=== PATIENT | female | born 1970 | race Caucasian/White ===

== ENCOUNTER → 2017-03-10 | Outpatient (CLI) | payer OTHER ==
[2017-03-17 02:40] LABS: ANAPLASMA PHAGOCYTOPHIL IGG <1:64 (<1:64); ANAPLASMA PHAGOCYTOPHIL IGM <1:20 (<1:20); ANTI-CENTROMERE AB <1.0 NEG AI (<1.0 NEG); ANTI-SS-A <1.0 NEG AI (<1.0 NEG); ANTI-SS-B <1.0 NEG AI (<1.0 NEG); DNA ds CRITHIDIA NEGATIVE (NEGATIVE); HLA-B27** TC 528X NEGATIVE (NEGATIVE); MICROSOMAL AB <1 IU/ML (<9); Sm Antibody <1.0 NEG AI (<1.0 NEG)
== END | disposition home or self-care (01) ==
LOC: C.LAB1850 14:42
PROVIDERS: ATTEND Internal Medicine Infectious Disease
DX: A69.20 Lyme disease, unspecified (principal)

== ENCOUNTER → 2017-03-19 | Outpatient (CLI) | payer OTHER ==
[~2017-03-19] MED LIST: GADAVIST IV PRN
--- NOTE | 2017-03-19 18:02 | DIAGNOSTIC IMAGING REPORT ---
Brain MRI WITH AND WITHOUT CONTRAST HISTORY: Headaches. Vision changes. Memory loss. Weakness. LYME DISEASE TECHNIQUE: Multiplanar multisequence MRI of the brain was performed both before and after the intravenous administration of contrast. COMPARISON STUDY: None. FINDINGS: There are no areas of restricted diffusion to suggest acute infarction. Incidental note is made of a partially empty sella. Otherwise, the midline structures are intact. The paranasal sinuses are clear. The mastoid air cells are clear. The ventricles and sulci are within normal limits for age. There is no mass, hematoma, midline shift. The major vascular flow-voids at the skull base are well maintained. Postcontrast sequences show no areas of abnormal enhancement. There are total 5 punctate T2 hyperintense foci within the periventricular white matter of the supratentorial brain. No infratentorial white matter lesions. IMPRESSION: 1. No acute intracranial abnormality. 2. A total 5 punctate T2 hyperintense foci within the periventricular white matter of the supratentorial brain. These are nonspecific and favor minimal microvascular ischemic change or sequela of migraines. Lymes disease could also have a similar appearance in the appropriate clinical setting but is considered less likely. This is unlikely to represent multiple sclerosis. Electronically signed by: Herve Gaytan M.D. 03/19/2017 6:00 PM Dictated Date/Time: 03/19/2017 5:52 PM
== END | disposition home or self-care (01) ==
LOC: C.MRI 17:07
PROVIDERS: ATTEND Internal Medicine Infectious Disease
DX: A69.20 Lyme disease, unspecified (principal); R94.02 Abnormal brain scan

== ENCOUNTER → 2017-04-13 | Day surgery (SDC) | payer OTHER ==
[2017-04-13] VITALS (9 sets, daily range): BP systolic 112–146; BP diastolic 51–86; PULSE 69–79; TEMP 36.6–36.9; O2SAT 95–98; Ht 162.6 cm; Wt 95.5 kg
[~2017-04-13] VITALS: Ht 162.6 cm; Wt 95.5 kg
[~2017-04-13] MED LIST changes: +ACET-1311 PO; +ACETAMINOPHEN 500 MG TAB PO ONE; +ACETAMINOPHEN 500 MG TAB PO PRN; +ASPI-390 PO; +BUPRTAB51 PO; +FLUO40CA8 PO; -GADAVIST IV PRN; +PRLSR20 PO; +TRAZ100T29 PO
--- NOTE | 2017-04-13 09:56 | DIAGNOSTIC IMAGING REPORT ---
LUMBAR PUNCTURE DIAGNOSTIC CLINICAL HISTORY: 46 years-old Female presenting with lines disease, headaches, vision changes, muscle legs, memory loss, weakness. COMPARISON: Brain MR from 03/19/2017. PROCEDURE: The procedure, risks and benefits were discussed with the patient including the risk of spinal headache, bleeding and infection. The patient agreed to the procedure and informed written consent was obtained. The procedure was performed by Dr. Calderon following a timeout. The L3-4 interspinous space was targeted. Skin overlying the space was prepped and draped in the usual aseptic fashion and local anesthesia was achieved with 1% lidocaine. Under intermittent fluoroscopic guidance, a 20-gauge x 3 1/2 in. Sprotte needle was inserted into the thecal sac. Opening pressure was obtained and prone positioning, which measured 23 cmH2O. A total of 10 mL of clear, colorless cerebral spinal fluid was obtained and spread amongst 4 vials. The patient tolerated the procedure well. There were no immediate complications. The specimens were sent to the laboratory at the request of the referring physician. Reference range: Normal opening pressure 6-25 cmH2O (95% reference interval for lateral decubitus positioning). Fluoroscopy dosage (mGy): Not available. Fluoroscopy time: 0.2 minutes. Number of fluoroscopic spot images: 0. IMPRESSION: 1. Successful fluoroscopic guided lumbar puncture with removal of 10 mL of clear, colorless cerebral spinal fluid. No immediate complications. 2. Normal opening pressure. Electronically signed by: Andrea Calderon M.D. 04/13/2017 9:55 AM Dictated Date/Time: 04/13/2017 9:53 AM
--- NOTE | 2017-04-13 10:15 | Discharge Instructions ---
Discharge Instructions Procedure Procedure Date: Apr 13, 2017. Reason for visit: Lyme Disease. Discharge Discharge Date: Apr 13, 2017. Discharge Diagnosis: Successful fluoroscopic guided lumbar puncture with collection of 10 mL of CSF sent to laboratory for testing for Lyme Disease. Medications Restart Stopped Medication(s): Resume home meds. Instructions Activity Recommendations: No limitations Return to School/Work: no limitations Recommended Home Diet: No Limitations Allergies Coded Allergies: Codeine (Verified Adverse Reaction, Unknown, headache, 04/13/17) Gabapentin (Verified Adverse Reaction, Unknown, agitated and mean, ) Tramadol (Verified Adverse Reaction, Unknown, agitated;slurred speech, 04/18) Johnson Guevara Recommendations: Call your doctor if: * Temperature above 101 degrees * Pain not relieved by pain medicine ordered * There is increased drainage or redness from any incision * You have any unanswered questions or concerns. Your Doctors Instructions noted above were prepared by provider Andrea Cadleron. Patient Signature Section: Patient Instructions Signature Page Anel Choudhury Patient (or Guardian) Signature/Date: I have read and understand the instructions given to me by my caregivers. Caregiver/RN/Doctor Signature/Date: The above-named patient and/or guardian has received patient instructions on this date. + Original Patient Signature Page (only) stays with chart. Please make copy for patient.
[2017-04-13 10:40] LABS: CSF TOTAL PROTEIN 37.5 mg/dl (15.0-45.0)
[2017-04-13 10:53] LABS: CSF APPEARANCE CLEAR; CSF COLOR COLORLESS; CSF XANTHOCHROMIC NO XANTHOCHROMIA
== END | disposition home or self-care (01) ==
LOC: C.ACU 06:45
PROVIDERS: ATTEND Internal Medicine Infectious Disease
DX: A69.20 Lyme disease, unspecified (principal)